=== PATIENT | male | born 1995 | race Caucasian/White ===

== ENCOUNTER 2016-05-24 14:54 | Emergency (ER) | payer MEDICAID ==
[~2016-05-24] VITALS: Ht 172.7 cm; Wt 90.0 kg
[2016-05-24 14:59] VITALS: BP 127/70
[2016-05-24] MEDS ORDERED: SODIUM CHLORIDE 0.9% 1,000ML IVBOLUS ONE (15:30)
[2016-05-24] MEDS ORDERED: SODIUM CHLORIDE FLUSH 10ML SYR IVF ONE (15:30)
[2016-05-24] MEDS ORDERED: LIDOCAINE 1%, 20ML ONE (15:41)
[2016-05-24] MEDS ORDERED: LIDOCAINE 1%, 10ML INFIL ONE (16:00)
== END 2016-05-24 16:40 | disposition home or self-care (01) ==
LOC: ED 16:10
DX: L02.01 Cutaneous abscess of face (principal); H00.032 Abscess of right lower eyelid; H00.031 Abscess of right upper eyelid; W57.XXXA Bitten or stung by nonvenomous insect and other nonvenomous arthropods, initial encounter; Y93.89 Activity, other specified; Y99.8 Other external cause status; Y92.009 Unspecified place in unspecified non-institutional (private) residence as the place of occurrence of the external cause
CPT/HCPCS: 10060

== ENCOUNTER 2016-06-07 10:06 | Emergency (ER) | payer MEDICAID ==
[~2016-06-07] VITALS: Ht 175.3 cm; Wt 105.4 kg
[2016-06-07 11:06] VITALS: BP 120/61
== END 2016-06-07 11:09 | disposition home or self-care (01) ==
LOC: ED 10:50
DX: Z00.129 Encounter for routine child health examination without abnormal findings (principal)
CPT/HCPCS: 99281

== ENCOUNTER 2017-06-29 00:36 | Emergency (ER) | payer MEDICAID ==
[~2017-06-29] VITALS: Ht 172.7 cm; Wt 130.3 kg
[2017-06-29 00:37] VITALS: BP 123/79
[2017-06-29] MEDS ORDERED: LIDOCAINE-MPF 1%, 5ML INFIL ONE (01:00)
[2017-06-29] MEDS ORDERED: LIDOCAINE-MPF 1%, 5ML ONE (01:06)
== END 2017-06-29 01:39 | disposition home or self-care (01) ==
LOC: ED 01:16
DX: L02.01 Cutaneous abscess of face (principal); F17.200 Nicotine dependence, unspecified, uncomplicated; Z88.0 Allergy status to penicillin; Z88.8 Allergy status to other drugs, medicaments and biological substances
CPT/HCPCS: 10060; 99283

== ENCOUNTER 2018-03-02 14:28 | Emergency (ER) | payer MEDICAID ==
[~2018-03-02] VITALS: Ht 175.3 cm; Wt 132.1 kg
[2018-03-02 14:34] VITALS: BP 120/72
== END 2018-03-02 16:04 | disposition home or self-care (01) ==
LOC: ED 15:52
DX: S89.92XA Unspecified injury of left lower leg, initial encounter (principal); F17.200 Nicotine dependence, unspecified, uncomplicated; X58.XXXA Exposure to other specified factors, initial encounter; Y93.89 Activity, other specified; Y92.69 Other specified industrial and construction area as the place of occurrence of the external cause; Y99.8 Other external cause status
CPT/HCPCS: 99282

== ENCOUNTER 2018-03-12 14:20 | Emergency (ER) | payer MEDICAID ==
[~2018-03-12] VITALS: Ht 175.3 cm; Wt 132.0 kg
[2018-03-12 14:30] VITALS: BP 120/82
== END 2018-03-12 14:54 | disposition home or self-care (01) ==
LOC: ED 14:50
DX: Z02.79 Encounter for issue of other medical certificate (principal); Z88.0 Allergy status to penicillin; Z88.1 Allergy status to other antibiotic agents; Z88.8 Allergy status to other drugs, medicaments and biological substances
CPT/HCPCS: 99281